=== PATIENT | male | born 1945 | race Caucasian/White ===

== ENCOUNTER 2022-04-08 18:51 | Emergency (ER) | payer OTHER ==
[~2022-04-08] VITALS: Ht 182.9 cm; Wt 250.0 kg
[2022-04-08] MEDS ORDERED: DEXTROSE (50%) 50ML SYRG IV ONE (19:30)
[2022-04-08 21:17] LABS: Basophils # (auto) 0 10 ^3/uL (0-0.2); Basophils % (auto) 0.5 % (0.0-2.0); Eosinophils # (auto) 0 10 ^3/uL (0-0.8); Lymphocytes # (auto) 1.5 10 ^3/uL (0.4-5.4); Monocytes # (auto) 0.5 10 ^3/uL (0-1.3); Monocytes % (auto) 6.7 % (0.0-12.0); Neutrophils # (auto) 5.7 10 ^3/uL (1.6-8.6); White Blood Cell 7.8 10^3/uL (4.4-10.8)
[2022-04-08 21:19] LABS: Eosinophils % (auto) 0.5 % (0.0-7.0); Hematocrit 34.1 % (41.0-53.0); Hemoglobin 10.8 g/dL (13.5-17.5); Lymphocytes % (auto) 19.1 % (10.0-50.0); Mean Corpuscular Hemoglobin 25.8 pg (28.0-32.0); Mean Corpuscular Hgb Conc. 31.8 g/dL (32.0-36.0); Mean Corpuscular Volume 81.1 fL (80.0-100.0); Neutrophils % (auto) 73.2 % (37.0-80.0); Red Cell Distribution Width 17.1 % (11.8-14.3)
[2022-04-08 21:28] LABS: Potassium 3.6 mmol/L (3.5-5.1)
[2022-04-08 21:30] LABS: INR 1.34 (0.9-1.15); Partial Thromboplastin Time 43.3 sec (24.6-33.4)
[2022-04-08 22:28] LABS: Albumin 3.1 g/dL (3.4-5.0); BUN/Creatinine Ratio 19.3; Bilirubin, Total 0.6 mg/dL (0.2-1.0); Calcium 8.3 mg/dL (8.5-10.1); Total Protein 6.6 g/dL (6.4-8.2)
[2022-04-08 22:48] LABS: Magnesium 2.4 mg/dL (1.6-2.6)
[2022-04-09] VITALS: BP 119/51
== END 2022-04-09 00:35 | disposition home or self-care (01) ==
LOC: EDBD 18:51 → ER 18:56
DX: E11.649 Type 2 diabetes mellitus with hypoglycemia without coma (principal); R94.31 Abnormal electrocardiogram [ECG] [EKG]; I50.9 Heart failure, unspecified
CPT/HCPCS: 36415; 80053; 82010; 82962; 83735; 85025; 85610; 85730; 93005; 96374; 99285; J7042

== ENCOUNTER 2022-07-04 21:36 | Inpatient (IN) | payer OTHER ==
[~2022-07-04] VITALS: Ht 175.3 cm; Wt 110.0 kg
[2022-07-04] MEDS ORDERED: ACETAMINOPHEN 325 MG TAB PO ONE (22:30)
[2022-07-04 22:43] LABS: Basophils # (auto) 0 10 ^3/uL (0-0.2); Basophils % (auto) 0.1 % (0.0-2.0); Hemoglobin 12.1 g/dL (13.5-17.5); Mean Corpuscular Hemoglobin 26.3 pg (28.0-32.0); Monocytes # (auto) 0.2 10 ^3/uL (0-1.3)
[2022-07-04 22:45] LABS: Eosinophils # (auto) 0 10 ^3/uL (0-0.8); Eosinophils % (auto) 0.2 % (0.0-7.0); Hematocrit 37.7 % (41.0-53.0); Lymphocytes % (auto) 8.5 % (10.0-50.0); Mean Corpuscular Hgb Conc. 32.1 g/dL (32.0-36.0); Neutrophils # (auto) 10.8 10 ^3/uL (1.6-8.6); Neutrophils % (auto) 89.2 % (37.0-80.0); Red Cell Distribution Width 16.1 % (11.8-14.3); White Blood Cell 12.1 10^3/uL (4.4-10.8)
[2022-07-04 22:59] LABS: INR 1.16 (0.9-1.15); Partial Thromboplastin Time 30.8 sec (24.6-33.4)
[2022-07-04 23:00] LABS: Albumin 3.3 g/dL (3.4-5.0); BUN/Creatinine Ratio 19.6; Calcium 9.1 mg/dL (8.5-10.1); Potassium 3.6 mmol/L (3.5-5.1)
[2022-07-04 23:02] LABS: Bilirubin, Total 0.6 mg/dL (0.2-1.0); Total Protein 7.4 g/dL (6.4-8.2)
[2022-07-04] MEDS ORDERED: levoFLOXacin 500MG 100 ML IV ONE (23:45)
[2022-07-05] VITALS (11 sets, daily range): BP systolic 74–131; BP diastolic 36–54
[2022-07-05] MEDS ORDERED: ONDANSETRON HCL 4 MG/2 ML VIAL IV ONE (01:00)
[2022-07-05] MEDS ORDERED: KETOROLAC TROMETH 30 MG/ML 1ML VIAL IV ONE (01:00)
[2022-07-05] MEDS ORDERED: MIDAZOLAM DRIP 50 mg/50mL 50 ML IV ONE (02:42)
[2022-07-05] MEDS ORDERED: ETOMIDATE (2MG/ML) 20ML VIAL IV ONE ×2 (02:42→02:45)
[2022-07-05] MEDS ORDERED: ROCURONIUM 10MG/ML 10ML VIAL IV ONE ×4 (02:42→05:15)
[2022-07-05] MEDS ORDERED: MIDAZOLAM DRIP 50 mg/50mL 50 ML IV SCH (02:45)
[2022-07-05] MEDS ORDERED: VANCOMYCIN 1GM/250ML 250 ML IV ONE (02:45)
[2022-07-05] MEDS ORDERED: MIDAZOLAM HCL 5 MG/ML-1ML VIAL ONE (03:08)
[2022-07-05] MEDS ORDERED: DOPamine 1600MCG/ML D5W 250 ML IV ONE ×2 (03:08→03:15)
[2022-07-05] MEDS ORDERED: MIDAZOLAM HCL 5 MG/ML-1ML VIAL IV ONE (03:15)
[2022-07-05] MEDS: MIDAZOLAM DRIP 50 mg/50mL 50 ML IV SCH ×2 (03:15→09:15)
[2022-07-05] MEDS ORDERED: SODIUM CHLORIDE 0.9% 250 ML IV ONE (04:15)
[2022-07-05] MEDS ORDERED: PIPERACILLIN-TAZOB 3.375GM 100 ML IV ONE (04:45)
[2022-07-05] MEDS: DOPamine 1600MCG/ML D5W 250 ML IV SCH ×3 (10:31→23:47)
[2022-07-05 10:57] LABS: Urine Specific Gravity 1.025 (1.001-1.035)
[2022-07-05 10:58] LABS: Urine Blood 2+ /uL (Negative)
[2022-07-05 12:08] LABS: Basophils # (auto) 0.2 10 ^3/uL (0-0.2); Basophils % (auto) 0.7 % (0.0-2.0); Eosinophils # (auto) 0 10 ^3/uL (0-0.8); Eosinophils % (auto) 0.1 % (0.0-7.0); Hematocrit 39.3 % (41.0-53.0); Hemoglobin 12.4 g/dL (13.5-17.5); Lymphocytes # (auto) 1.7 10 ^3/uL (0.4-5.4); Lymphocytes % (auto) 7.9 % (10.0-50.0); Mean Corpuscular Hgb Conc. 31.5 g/dL (32.0-36.0); Mean Corpuscular Volume 82.7 fL (80.0-100.0); Monocytes # (auto) 1.3 10 ^3/uL (0-1.3); Monocytes % (auto) 5.9 % (0.0-12.0); Neutrophils # (auto) 18.2 10 ^3/uL (1.6-8.6); Neutrophils % (auto) 85.4 % (37.0-80.0); Red Blood Cells 4.75 10^6/uL (4.5-5.90); Red Cell Distribution Width 16.1 % (11.8-14.3); White Blood Cell 21.3 10^3/uL (4.4-10.8)
[2022-07-05] MEDS ORDERED: ONDANSETRON HCL 4 MG/2 ML VIAL IV PRN (12:15)
[2022-07-05 12:33] LABS: Calcium 8.7 mg/dL (8.5-10.1); Potassium 4.2 mmol/L (3.5-5.1)
[2022-07-05 12:35] LABS: BUN/Creatinine Ratio 20.9
[2022-07-05 12:37] LABS: INR 1.21 (0.9-1.15); Partial Thromboplastin Time 40.6 sec (24.6-33.4)
[2022-07-05 12:38] LABS: Bilirubin, Total 1.3 mg/dL (0.2-1.0); Total Protein 7.7 g/dL (6.4-8.2)
[2022-07-05] MEDS: PIPERACILLIN-TAZOB 3.375GM 100 ML IV SCH ×2 (15:22→22:21)
[2022-07-05] MEDS ORDERED: DEXTROSE (50%) 50ML SYRG IV PRN (20:45)
[2022-07-05] MEDS ORDERED: InsuLIN REG 1unit/0.01ml Soln (100units/ml) SC SCH (22:00)
[2022-07-05] MEDS: ACCU-CHEK COMFORT CURVE STRIP VI SCH (22:00)
[2022-07-05] MEDS: FUROSEMIDE 40 MG/4 ML VIAL IV SCH (22:19)
[2022-07-05] MEDS: HEPARIN SODIUM (PORCINE) 5000 UNITS/ML 1ML VIAL SC SCH (22:20)
[2022-07-06] VITALS (17 sets, daily range): BP systolic 93–154; BP diastolic 34–62
[2022-07-06] MEDS: ACCU-CHEK COMFORT CURVE STRIP VI SCH ×5 (00:18→23:58)
[2022-07-06] MEDS: InsuLIN REG 1unit/0.01ml Soln (100units/ml) SC SCH ×5 (00:25→23:57)
[2022-07-06] MEDS ORDERED: fentaNYL Drip 2500mCg/250mlNS 250 ML IV ONE (02:27)
[2022-07-06] MEDS: fentaNYL Drip 2500mCg/250mlNS 250 ML IV SCH (02:30)
[2022-07-06] MEDS: MIDAZOLAM DRIP 50 mg/50mL 50 ML IV SCH ×3 (03:00→06:30)
[2022-07-06 03:39] LABS: Basophils # (auto) 0 10 ^3/uL (0-0.2); Basophils % (auto) 0.2 % (0.0-2.0); Eosinophils # (auto) 0.1 10 ^3/uL (0-0.8); Eosinophils % (auto) 0.7 % (0.0-7.0); Hematocrit 34.2 % (41.0-53.0); Hemoglobin 10.8 g/dL (13.5-17.5); Lymphocytes # (auto) 1.1 10 ^3/uL (0.4-5.4); Lymphocytes % (auto) 7.6 % (10.0-50.0); Mean Corpuscular Hemoglobin 26.2 pg (28.0-32.0); Mean Corpuscular Hgb Conc. 31.7 g/dL (32.0-36.0); Mean Corpuscular Volume 82.7 fL (80.0-100.0); Monocytes # (auto) 0.7 10 ^3/uL (0-1.3); Monocytes % (auto) 4.8 % (0.0-12.0); Neutrophils # (auto) 12.8 10 ^3/uL (1.6-8.6); Neutrophils % (auto) 86.7 % (37.0-80.0); Red Blood Cells 4.13 10^6/uL (4.5-5.90); Red Cell Distribution Width 16.2 % (11.8-14.3); White Blood Cell 14.8 10^3/uL (4.4-10.8)
[2022-07-06 03:46] LABS: Albumin 2.6 g/dL (3.4-5.0); BUN/Creatinine Ratio 23.2; Calcium 8.5 mg/dL (8.5-10.1)
[2022-07-06 03:49] LABS: Total Protein 7.1 g/dL (6.4-8.2)
[2022-07-06] MEDS: PIPERACILLIN-TAZOB 3.375GM 100 ML IV SCH ×4 (06:29→21:45)
[2022-07-06] MEDS ORDERED: InsuLIN REG 1unit/0.01ml Soln (100units/ml) SC SCH (07:00)
[2022-07-06] MEDS: PANTOPRAZOLE 40 MG/10 ML VIAL INJ IV SCH ×2 (10:11→10:54)
[2022-07-06] MEDS: FUROSEMIDE 40 MG/4 ML VIAL IV SCH (10:11)
[2022-07-06] MEDS: HEPARIN SODIUM (PORCINE) 5000 UNITS/ML 1ML VIAL SC SCH ×2 (10:15→21:56)
[2022-07-06] MEDS ORDERED: Glucerna 1.2 Cal 1Liter BOTTLE GT SCH (18:00)
[2022-07-06] MEDS: DOPamine 1600MCG/ML D5W 250 ML IV SCH (20:45)
[2022-07-07] VITALS (96 sets, daily range): BP systolic 93–138; BP diastolic 30–61
[2022-07-07] MEDS: MIDAZOLAM DRIP 50 mg/50mL 50 ML IV SCH ×4 (01:54→10:04)
[2022-07-07] MEDS: fentaNYL Drip 2500mCg/250mlNS 250 ML IV SCH (03:05)
[2022-07-07 04:03] LABS: Basophils # (auto) 0.1 10 ^3/uL (0-0.2); Basophils % (auto) 1.3 % (0.0-2.0); Eosinophils # (auto) 0.2 10 ^3/uL (0-0.8); Hematocrit 32.8 % (41.0-53.0); Hemoglobin 10.7 g/dL (13.5-17.5); Lymphocytes # (auto) 1.6 10 ^3/uL (0.4-5.4); Lymphocytes % (auto) 15.7 % (10.0-50.0); Mean Corpuscular Hemoglobin 26.6 pg (28.0-32.0); Mean Corpuscular Hgb Conc. 32.7 g/dL (32.0-36.0); Mean Corpuscular Volume 81.4 fL (80.0-100.0); Monocytes # (auto) 0.4 10 ^3/uL (0-1.3); Monocytes % (auto) 4.3 % (0.0-12.0); Neutrophils # (auto) 7.9 10 ^3/uL (1.6-8.6); Neutrophils % (auto) 76.7 % (37.0-80.0); Red Blood Cells 4.03 10^6/uL (4.5-5.90); Red Cell Distribution Width 16.1 % (11.8-14.3); White Blood Cell 10.3 10^3/uL (4.4-10.8)
[2022-07-07 04:23] LABS: Albumin 2.4 g/dL (3.4-5.0); BUN/Creatinine Ratio 30.3; Calcium 8.3 mg/dL (8.5-10.1); Potassium 3.8 mmol/L (3.5-5.1)
[2022-07-07 04:26] LABS: Bilirubin, Total 0.9 mg/dL (0.2-1.0); Total Protein 6.1 g/dL (6.4-8.2)
[2022-07-07 05:07] LABS: INR 1.05 (0.9-1.15); Partial Thromboplastin Time 34.7 sec (24.6-33.4)
[2022-07-07] MEDS: PIPERACILLIN-TAZOB 3.375GM 100 ML IV SCH ×3 (05:31→22:00)
[2022-07-07] MEDS: InsuLIN REG 1unit/0.01ml Soln (100units/ml) SC SCH ×3 (05:53→18:00)
[2022-07-07] MEDS: ACCU-CHEK COMFORT CURVE STRIP VI SCH ×3 (05:57→18:00)
[2022-07-07] MEDS: DOPamine 1600MCG/ML D5W 250 ML IV SCH (10:05)
[2022-07-07] MEDS: HEPARIN SODIUM (PORCINE) 5000 UNITS/ML 1ML VIAL SC SCH ×2 (10:06→22:00)
[2022-07-07 19:48] LABS: Protein, Urine 31.5 mg/dL (0.0-11.9)
[2022-07-07 19:49] LABS: Creatinine, Urine 110 mg/dL (30.0-125.0); Sodium Urine 20 mmol/L (40-220)
[2022-07-08] VITALS (63 sets, daily range): BP systolic 89–148; BP diastolic 36–69
[2022-07-08] MEDS: ACCU-CHEK COMFORT CURVE STRIP VI SCH ×5 (00:15→23:20)
[2022-07-08] MEDS: DOPamine 1600MCG/ML D5W 250 ML IV SCH ×2 (01:45→14:27)
[2022-07-08] MEDS: fentaNYL Drip 2500mCg/250mlNS 250 ML IV SCH (02:15)
[2022-07-08 04:07] LABS: Basophils # (auto) 0 10 ^3/uL (0-0.2); Basophils % (auto) 0.3 % (0.0-2.0); Eosinophils # (auto) 0.1 10 ^3/uL (0-0.8); Eosinophils % (auto) 1.2 % (0.0-7.0); Hematocrit 30.8 % (41.0-53.0); Hemoglobin 10.1 g/dL (13.5-17.5); Lymphocytes # (auto) 1.1 10 ^3/uL (0.4-5.4); Lymphocytes % (auto) 16.3 % (10.0-50.0); Mean Corpuscular Hgb Conc. 32.9 g/dL (32.0-36.0); Monocytes # (auto) 0.4 10 ^3/uL (0-1.3); Monocytes % (auto) 5.6 % (0.0-12.0); Neutrophils % (auto) 76.6 % (37.0-80.0); Red Blood Cells 3.75 10^6/uL (4.5-5.90); Red Cell Distribution Width 15.7 % (11.8-14.3); White Blood Cell 6.5 10^3/uL (4.4-10.8)
[2022-07-08 04:28] LABS: Albumin 2.1 g/dL (3.4-5.0); Calcium 8.4 mg/dL (8.5-10.1); Potassium 4.1 mmol/L (3.5-5.1)
[2022-07-08 04:31] LABS: BUN/Creatinine Ratio 28.8; Bilirubin, Total 0.8 mg/dL (0.2-1.0); Phosphorus 2.6 mg/dL (2.5-4.90)
[2022-07-08] MEDS: PIPERACILLIN-TAZOB 3.375GM 100 ML IV SCH ×3 (06:00→21:19)
[2022-07-08] MEDS: InsuLIN REG 1unit/0.01ml Soln (100units/ml) SC SCH ×5 (06:00→23:22)
[2022-07-08] MEDS: PANTOPRAZOLE 40 MG/10 ML VIAL INJ IV SCH (09:08)
[2022-07-08] MEDS: HEPARIN SODIUM (PORCINE) 5000 UNITS/ML 1ML VIAL SC SCH ×2 (09:10→21:19)
[2022-07-08] MEDS ORDERED: MUPIROCIN 2% OINT 15gm or 22gm FOR MRSA NARES TOP ONE (14:30)
[2022-07-08] MEDS ORDERED: ATOR40TA52 PO (16:48)
[2022-07-08] MEDS ORDERED: GLIP10TA9 PO (16:48)
[2022-07-08] MEDS ORDERED: BISO5TAB44 PO (16:48)
[2022-07-08] MEDS ORDERED: AMLO-496 PO (16:48)
[2022-07-08] MEDS ORDERED: LISI20TA28 PO (16:48)
[2022-07-08] MEDS ORDERED: GABA300C10 PO (16:48)
[2022-07-08] MEDS ORDERED: PANT40TA2 PO (16:48)
[2022-07-08] MEDS ORDERED: TAMS0.4C36 PO (16:48)
[2022-07-08] MEDS ORDERED: DABI150C5 PO (16:48)
[2022-07-08] MEDS ORDERED: FURO40TA4 PO (16:48)
[2022-07-08] MEDS: MUPIROCIN 2% OINT 15gm or 22gm FOR MRSA NARES TOP SCH (21:21)
[2022-07-09] VITALS (56 sets, daily range): BP systolic 103–171; BP diastolic 48–83
[2022-07-09] MEDS: fentaNYL Drip 2500mCg/250mlNS 250 ML IV SCH (02:15)
[2022-07-09] MEDS: DOPamine 1600MCG/ML D5W 250 ML IV SCH (03:09)
[2022-07-09] MEDS: MIDAZOLAM DRIP 50 mg/50mL 50 ML IV SCH (03:15)
[2022-07-09] MEDS: PIPERACILLIN-TAZOB 3.375GM 100 ML IV SCH ×3 (06:11→21:08)
[2022-07-09] MEDS: InsuLIN REG 1unit/0.01ml Soln (100units/ml) SC SCH ×4 (06:11→23:33)
[2022-07-09] MEDS: ACCU-CHEK COMFORT CURVE STRIP VI SCH ×4 (06:12→23:32)
[2022-07-09] MEDS: PANTOPRAZOLE 40 MG/10 ML VIAL INJ IV SCH (09:46)
[2022-07-09] MEDS: HEPARIN SODIUM (PORCINE) 5000 UNITS/ML 1ML VIAL SC SCH ×2 (09:49→21:09)
[2022-07-09] MEDS: MUPIROCIN 2% OINT 15gm or 22gm FOR MRSA NARES TOP SCH ×2 (09:51→21:10)
[2022-07-09 15:08] LABS: BUN/Creatinine Ratio 24.4; Calcium 9.2 mg/dL (8.5-10.1); Potassium 3.6 mmol/L (3.5-5.1)
[2022-07-09] MEDS: hydrALAZINE HCL 20 MG/ML VL IV PRN (21:08)
[2022-07-10] VITALS (82 sets, daily range): BP systolic 101–181; BP diastolic 43–72
[2022-07-10 04:03] LABS: BUN/Creatinine Ratio 23.2; Potassium 3.6 mmol/L (3.5-5.1)
[2022-07-10] MEDS: hydrALAZINE HCL 20 MG/ML VL IV PRN (04:39)
[2022-07-10] MEDS: PIPERACILLIN-TAZOB 3.375GM 100 ML IV SCH ×3 (05:28→21:47)
[2022-07-10] MEDS: ACCU-CHEK COMFORT CURVE STRIP VI SCH ×3 (05:29→17:09)
[2022-07-10] MEDS: InsuLIN REG 1unit/0.01ml Soln (100units/ml) SC SCH ×3 (05:30→17:07)
[2022-07-10] MEDS: MUPIROCIN 2% OINT 15gm or 22gm FOR MRSA NARES TOP SCH ×2 (09:34→21:48)
[2022-07-10] MEDS: HEPARIN SODIUM (PORCINE) 5000 UNITS/ML 1ML VIAL SC SCH ×2 (09:34→21:48)
[2022-07-10] MEDS: PANTOPRAZOLE 40 MG/10 ML VIAL INJ IV SCH (09:34)
[2022-07-10] MEDS: ALBUTEROL SULF 2.5 MG/0.5ML(0.5%) NEB SOLN NEB SCH ×2 (15:09→22:18)
[2022-07-10] MEDS: IPRATROPIUM BROM 0.5 MG/2.5ML INH SOL NEB SCH ×2 (15:09→22:18)
[2022-07-11] VITALS (25 sets, daily range): BP systolic 118–171; BP diastolic 37–84
[2022-07-11] MEDS: InsuLIN REG 1unit/0.01ml Soln (100units/ml) SC SCH ×5 (00:11→23:58)
[2022-07-11] MEDS: ACCU-CHEK COMFORT CURVE STRIP VI SCH ×5 (00:11→23:54)
[2022-07-11 03:59] LABS: Basophils # (auto) 0.1 10 ^3/uL (0-0.2); Eosinophils # (auto) 0.1 10 ^3/uL (0-0.8); Eosinophils % (auto) 1.4 % (0.0-7.0); Hematocrit 33.8 % (41.0-53.0); Hemoglobin 10.7 g/dL (13.5-17.5); Lymphocytes # (auto) 1.4 10 ^3/uL (0.4-5.4); Mean Corpuscular Hemoglobin 26.5 pg (28.0-32.0); Mean Corpuscular Hgb Conc. 31.6 g/dL (32.0-36.0); Mean Corpuscular Volume 83.7 fL (80.0-100.0); Monocytes # (auto) 0.5 10 ^3/uL (0-1.3); Monocytes % (auto) 6.8 % (0.0-12.0); Neutrophils # (auto) 4.6 10 ^3/uL (1.6-8.6); Neutrophils % (auto) 69.8 % (37.0-80.0); Nucleated Red Blood Cells % 0.1 %; Red Blood Cells 4.03 10^6/uL (4.5-5.90); Red Cell Distribution Width 15.8 % (11.8-14.3); White Blood Cell 6.6 10^3/uL (4.4-10.8)
[2022-07-11 04:22] LABS: Potassium 3.5 mmol/L (3.5-5.1)
[2022-07-11 04:30] LABS: BUN/Creatinine Ratio 22.9
[2022-07-11] MEDS: PIPERACILLIN-TAZOB 3.375GM 100 ML IV SCH ×3 (05:48→21:10)
[2022-07-11] MEDS: ALBUTEROL SULF 2.5 MG/0.5ML(0.5%) NEB SOLN NEB SCH ×5 (06:59→23:13)
[2022-07-11] MEDS: IPRATROPIUM BROM 0.5 MG/2.5ML INH SOL NEB SCH ×5 (06:59→23:13)
[2022-07-11] MEDS: hydrALAZINE HCL 20 MG/ML VL IV PRN (09:32)
[2022-07-11] MEDS: HEPARIN SODIUM (PORCINE) 5000 UNITS/ML 1ML VIAL SC SCH ×2 (09:45→21:18)
[2022-07-11] MEDS: MUPIROCIN 2% OINT 15gm or 22gm FOR MRSA NARES TOP SCH ×2 (09:46→22:00)
[2022-07-11] MEDS: PANTOPRAZOLE 40 MG/10 ML VIAL INJ IV SCH (09:46)
[2022-07-12] MEDS: InsuLIN REG 1unit/0.01ml Soln (100units/ml) SC SCH ×4 (00:11→17:56)
[2022-07-12 05:00] VITALS: BP 141/67
[2022-07-12] MEDS: PIPERACILLIN-TAZOB 3.375GM 100 ML IV SCH (05:39)
[2022-07-12] MEDS: ACCU-CHEK COMFORT CURVE STRIP VI SCH ×3 (05:40→17:54)
[2022-07-12 08:30] VITALS: BP 160/71
[2022-07-12] MEDS: HEPARIN SODIUM (PORCINE) 5000 UNITS/ML 1ML VIAL SC SCH ×2 (09:55→22:17)
[2022-07-12] MEDS: IPRATROPIUM BROM 0.5 MG/2.5ML INH SOL NEB SCH ×3 (11:01→18:55)
[2022-07-12] MEDS: ALBUTEROL SULF 2.5 MG/0.5ML(0.5%) NEB SOLN NEB SCH ×3 (11:02→18:55)
[2022-07-12 12:25] VITALS: BP 143/69
[2022-07-12] MEDS: hydrALAZINE HCL 20 MG/ML VL IV PRN (12:34)
[2022-07-12] MEDS: MUPIROCIN 2% OINT 15gm or 22gm FOR MRSA NARES TOP SCH ×2 (12:35→22:16)
[2022-07-12 16:27] VITALS: BP 134/67
[2022-07-12 22:00] VITALS: BP 94/44
[2022-07-12] MEDS: DOXYCYCLINE 100 MG TAB/CAP PO SCH (22:00)
[2022-07-13] VITALS (8 sets, daily range): BP systolic 132–152; BP diastolic 62–93
[2022-07-13] MEDS: ACCU-CHEK COMFORT CURVE STRIP VI SCH ×5 (00:03→23:04)
[2022-07-13] MEDS: InsuLIN REG 1unit/0.01ml Soln (100units/ml) SC SCH ×5 (00:10→23:10)
[2022-07-13] MEDS: IPRATROPIUM BROM 0.5 MG/2.5ML INH SOL NEB SCH ×3 (06:35→19:21)
[2022-07-13] MEDS: ALBUTEROL SULF 2.5 MG/0.5ML(0.5%) NEB SOLN NEB SCH ×3 (06:35→19:21)
[2022-07-13 06:37] LABS: Basophils # (auto) 0.1 10 ^3/uL (0-0.2); Eosinophils # (auto) 0.2 10 ^3/uL (0-0.8); Eosinophils % (auto) 3.9 % (0.0-7.0); Hematocrit 32.7 % (41.0-53.0); Hemoglobin 10.8 g/dL (13.5-17.5); Lymphocytes # (auto) 1.8 10 ^3/uL (0.4-5.4); Lymphocytes % (auto) 29.1 % (10.0-50.0); Mean Corpuscular Hgb Conc. 32.9 g/dL (32.0-36.0); Monocytes # (auto) 0.4 10 ^3/uL (0-1.3); Monocytes % (auto) 6.8 % (0.0-12.0); Neutrophils # (auto) 3.7 10 ^3/uL (1.6-8.6); Neutrophils % (auto) 59.2 % (37.0-80.0); Nucleated Red Blood Cells % 0.1 %; Red Blood Cells 3.99 10^6/uL (4.5-5.90); Red Cell Distribution Width 15.9 % (11.8-14.3); White Blood Cell 6.2 10^3/uL (4.4-10.8)
[2022-07-13 06:58] LABS: Calcium 8.9 mg/dL (8.5-10.1); Potassium 3.9 mmol/L (3.5-5.1)
[2022-07-13 07:00] LABS: BUN/Creatinine Ratio 21.9
[2022-07-13] MEDS: DOXYCYCLINE 100 MG TAB/CAP PO SCH ×2 (09:19→22:59)
[2022-07-13] MEDS: HEPARIN SODIUM (PORCINE) 5000 UNITS/ML 1ML VIAL SC SCH ×2 (09:21→23:01)
[2022-07-13] MEDS: MUPIROCIN 2% OINT 15gm or 22gm FOR MRSA NARES TOP SCH (09:21)
[2022-07-14 05:22] VITALS: BP 150/73
[2022-07-14] MEDS: ACCU-CHEK COMFORT CURVE STRIP VI SCH ×2 (05:52→12:13)
[2022-07-14] MEDS: InsuLIN REG 1unit/0.01ml Soln (100units/ml) SC SCH ×2 (06:10→12:21)
[2022-07-14 08:15] VITALS: BP 149/80
[2022-07-14 09:00] VITALS: BP 149/80
[2022-07-14] MEDS: DOXYCYCLINE 100 MG TAB/CAP PO SCH (10:30)
[2022-07-14] MEDS: HEPARIN SODIUM (PORCINE) 5000 UNITS/ML 1ML VIAL SC SCH (10:31)
[2022-07-14 12:28] VITALS: BP 146/75
[2022-07-14] MEDS: IPRATROPIUM BROM 0.5 MG/2.5ML INH SOL NEB SCH (15:24)
[2022-07-14] MEDS: ALBUTEROL SULF 2.5 MG/0.5ML(0.5%) NEB SOLN NEB SCH (15:24)
[2022-07-14 15:50] VITALS: BP 146/75
[2022-07-14 16:40] VITALS: BP 154/86
[2022-07-14] MEDS ORDERED: ALBUTEROL MEDNEB 2.5 mg/3ml NEB ONE (18:04)
== END 2022-07-14 16:30 | DRG 870 ==
LOC: EDUNIT# 21:36 → EDBD 21:36 → ER 21:36 → TELE 07-05 12:19 → ICU WEST 07-06 22:48 → WEST WING 07-11 16:42 → TELE-WESTW 07-12 07:40
PROVIDERS: ADMIT Nurse Practitioner Family; ATTEND Hospitalist
PROC: 5A1955Z Respiratory Ventilation, Greater than 96 Consecutive Hours (ICD-10-PCS; principal; 2022-07-05)
PROC: 0BH17EZ Insertion of Endotracheal Airway into Trachea, Via Natural or Artificial Opening (ICD-10-PCS; 2022-07-05)
PROC: 06HY33Z Insertion of Infusion Device into Lower Vein, Percutaneous Approach (ICD-10-PCS; 2022-07-05)
DX: A41.9 Sepsis, unspecified organism (principal); G93.41 Metabolic encephalopathy; I50.23 Acute on chronic systolic (congestive) heart failure; J69.0 Pneumonitis due to inhalation of food and vomit; J96.01 Acute respiratory failure with hypoxia; N17.0 Acute kidney failure with tubular necrosis; I13.0 Hypertensive heart and chronic kidney disease with heart failure and stage 1 through stage 4 chronic kidney disease, or unspecified chronic kidney disease; I31.39 Other pericardial effusion (noninflammatory); Z20.822 Contact with and (suspected) exposure to COVID-19; D63.1 Anemia in chronic kidney disease; E11.22 Type 2 diabetes mellitus with diabetic chronic kidney disease; E11.649 Type 2 diabetes mellitus with hypoglycemia without coma; E11.65 Type 2 diabetes mellitus with hyperglycemia; E66.9 Obesity, unspecified; E86.0 Dehydration; E86.1 Hypovolemia; J06.9 Acute upper respiratory infection, unspecified; J44.9 Chronic obstructive pulmonary disease, unspecified; K76.0 Fatty (change of) liver, not elsewhere classified; E88.09 Other disorders of plasma-protein metabolism, not elsewhere classified; N18.9 Chronic kidney disease, unspecified; Z68.33 Body mass index [BMI] 33.0-33.9, adult
CPT/HCPCS: 36415; 36600; 71045; 74176; 76775; 80048; 80053; 81003; 82306; 82570; 82805; 82962; 83605; 83735; 83880; 83970; 84100; 84156; 84300; 84484; 85025; 85610; 85730; 87040; 87070; 87077; 87081; 87186; 87205; 87426; 87804; 92610; 93005; 93306; 94002; 94003; 94640; 96365; 96367; 96375; 97110; 97116; 97163; C9113; G0378; J1815; J1885; J1956; J2250; J2405; J2543; J7060